=== PATIENT | female | born 1980 | race African-American/Black ===

== ENCOUNTER 2022-02-11 10:42 | Inpatient (IN) | payer OTHER ==
[2022-02-11 11:25] VITALS: BMI 28.3
[2022-02-11] MEDS ORDERED: MAG HYDROX/AL HYDROX/SIMETH 30 ML UNIT-DOSE CUP PO PRN (11:54)
[2022-02-11] MEDS ORDERED: NALOXONE HCL (KLOXXADO) 8 MG SPRAY NS PRN (11:54)
[2022-02-11] MEDS ORDERED: guaiFENesin 200 MG/10 ML 10 ML UNIT-DOSE CUPS PO PRN (11:54)
[2022-02-11] MEDS ORDERED: ONDANSETRON *ODT* 4 MG TABLET SL PRN (11:54)
[2022-02-11] MEDS ORDERED: LOPERAMIDE HCL 2 MG CAPSULE PO PRN (11:54)
[2022-02-11] MEDS ORDERED: P-EPHED 60MG/TRIPROLIDI 2.5MG TABLET PO PRN (11:54)
[2022-02-11] MEDS ORDERED: BENZOCAINE/MENTHOL (CHLORASEPTIC ) LOZENGE MM PRN (11:54)
[2022-02-11] MEDS ORDERED: NALOXONE HCL 0.4 MG/ML VIAL IM PRN (11:54)
[2022-02-11] MEDS ORDERED: ACETAMINOPHEN 325 MG TABLET (FP) PO PRN ×2 (11:54)
[2022-02-11] MEDS ORDERED: BISMUTH SUBSALICYLATE 524 MG/30 ML PO PRN (11:54)
[2022-02-11] MEDS ORDERED: MAGNESIUM CITRATE 300 ML BOTTLE PO PRN (11:54)
[2022-02-11] MEDS ORDERED: MAGNESIUM HYDROX 2400MG/30ML ORAL SUSPENSION 30 ML CUP PO PRN (11:54)
[2022-02-11] MEDS ORDERED: DICYCLOMINE HCL 10 MG CAPSULE PO PRN (11:54)
[2022-02-11] MEDS ORDERED: IBUPROFEN 600 MG TABLET (FP) PO PRN (11:54)
[2022-02-11] MEDS ORDERED: IBUPROFEN 400 MG TABLET (FP) PO PRN (11:54)
[2022-02-11] MEDS ORDERED: NICOTINE 10 MG CARTRIDGE (INHALER) IH PRN (11:54)
[2022-02-11] MEDS ORDERED: chlordiazePOXIDE HCL 25 MG CAPSULE PO PRN (11:56)
[2022-02-11] MEDS ORDERED: hydrOXYzine PAMOATE 25 MG CAPSULE (FP) PO ONE (12:24)
[2022-02-11] MEDS ORDERED: IBUPROFEN 600 MG TABLET (FP) PO ONE (12:24)
[2022-02-11] MEDS: hydrOXYzine PAMOATE 25 MG CAPSULE (FP) PO PRN (12:34)
[2022-02-11] MEDS: METHOCARBAMOL 500 MG TABLET PO PRN (13:26)
[2022-02-11] MEDS: FOLIC ACID 1 MG TABLET (FP) PO SCH (14:17)
[2022-02-11] MEDS: LISINOPRIL 5 MG TABLET PO SCH (14:17)
[2022-02-11] MEDS: ASPIRIN 81 MG CHEWABLE TABLETS PO SCH (14:17)
[2022-02-11] MEDS: valACYclovir HCL 500 MG TABLET (FP) PO SCH (14:17)
[2022-02-11] MEDS: FUROSEMIDE 20 MG TABLET (FP) PO SCH (15:59)
[2022-02-11] MEDS: CHOLECALCIFEROL (VIT D3) 1,000 UNIT (25 MCG) TABLET PO SCH (15:59)
[2022-02-11 16:57] LABS: HEMATOCRIT 36.9 % (32.4-45.2); HEMOGLOBIN 12.1 GM/dL (10.7-15.3); MCH 30.3 pg (25.7-33.7); MCHC 32.7 g/dl (32.0-36.0); MEAN CELL VOLUME 92.5 fl (80-96); MEAN PLT VOLUME 7.6 fl (7.5-11.1); PLATELET COUNT 471 10^3/uL (134-434); RBC 3.99 M/mm3 (3.60-5.2); RDW 14.7 % (11.6-15.6); WHITE BLOOD COUNT 8.4 K/mm3 (4.0-10.0)
[2022-02-11 17:15] LABS: BLOOD UREA NITROGEN 11.1 mg/dL (7-18); CALCIUM 9.4 mg/dL (8.5-10.1)
[2022-02-11 17:16] LABS: ALBUMIN 3.7 g/dl (3.4-5.0)
[2022-02-11] MEDS: chlordiazePOXIDE HCL 25 MG CAPSULE PO SCH ×2 (17:18→22:03)
[2022-02-11 17:19] LABS: CREATININE 0.6 mg/dL (0.55-1.3)
[2022-02-11 17:20] LABS: BILIRUBIN,TOTAL 0.2 mg/dL (0.2-1); TOT PROT 7.2 g/dl (6.4-8.2)
[2022-02-11] MEDS: INSULIN SLIDING SCALE (NOVOLOG) 1 VIAL SQ SCH ×2 (19:48→22:11)
[2022-02-11] MEDS: ATORVASTATIN CA 40 MG TABLET (FP) PO SCH (22:02)
[2022-02-11] MEDS: THIAMINE HCL 100 MG TABLET (FP) PO SCH (22:02)
[2022-02-11] MEDS: MELATONIN 5 MG TABLETS PO PRN (22:12)
[2022-02-12] MEDS: CARVEDILOL 3.125 MG TABLET (FP) PO SCH ×4 (00:24→22:02)
[2022-02-12] MEDS: METHOCARBAMOL 500 MG TABLET PO PRN ×2 (00:27→18:11)
[2022-02-12] MEDS: chlordiazePOXIDE HCL 25 MG CAPSULE PO SCH ×4 (06:46→22:01)
[2022-02-12] MEDS: hydrOXYzine PAMOATE 25 MG CAPSULE (FP) PO PRN ×3 (06:46→22:41)
[2022-02-12] MEDS: INSULIN SLIDING SCALE (NOVOLOG) 1 VIAL SQ SCH ×4 (06:49→22:05)
[2022-02-12] MEDS: PRENATAL VITAMINS W/ FOLIC ACID TABLET (FP) PO SCH (10:29)
[2022-02-12] MEDS: FUROSEMIDE 20 MG TABLET (FP) PO SCH (10:29)
[2022-02-12] MEDS: ASPIRIN 81 MG CHEWABLE TABLETS PO SCH (10:30)
[2022-02-12] MEDS: FOLIC ACID 1 MG TABLET (FP) PO SCH (10:31)
[2022-02-12] MEDS: valACYclovir HCL 500 MG TABLET (FP) PO SCH (10:31)
[2022-02-12] MEDS: CHOLECALCIFEROL (VIT D3) 1,000 UNIT (25 MCG) TABLET PO SCH (10:32)
[2022-02-12] MEDS: LISINOPRIL 5 MG TABLET PO SCH (10:33)
[2022-02-12] MEDS: THIAMINE HCL 100 MG TABLET (FP) PO SCH (22:00)
[2022-02-12] MEDS: ATORVASTATIN CA 40 MG TABLET (FP) PO SCH (22:00)
[2022-02-12] MEDS: MELATONIN 5 MG TABLETS PO PRN (22:02)
[2022-02-13] MEDS: chlordiazePOXIDE HCL 25 MG CAPSULE PO SCH ×4 (06:11→22:49)
[2022-02-13] MEDS: METHOCARBAMOL 500 MG TABLET PO PRN ×2 (06:12→22:47)
[2022-02-13] MEDS: INSULIN SLIDING SCALE (NOVOLOG) 1 VIAL SQ SCH ×4 (06:18→22:49)
[2022-02-13] MEDS: valACYclovir HCL 500 MG TABLET (FP) PO SCH (09:48)
[2022-02-13] MEDS: LISINOPRIL 5 MG TABLET PO SCH (09:48)
[2022-02-13] MEDS: PRENATAL VITAMINS W/ FOLIC ACID TABLET (FP) PO SCH (09:48)
[2022-02-13] MEDS: CHOLECALCIFEROL (VIT D3) 1,000 UNIT (25 MCG) TABLET PO SCH (09:49)
[2022-02-13] MEDS: FUROSEMIDE 20 MG TABLET (FP) PO SCH (09:49)
[2022-02-13] MEDS: FOLIC ACID 1 MG TABLET (FP) PO SCH (09:49)
[2022-02-13] MEDS: ASPIRIN 81 MG CHEWABLE TABLETS PO SCH (09:49)
[2022-02-13] MEDS: CARVEDILOL 3.125 MG TABLET (FP) PO SCH ×2 (09:54→22:45)
[2022-02-13] MEDS: hydrOXYzine PAMOATE 25 MG CAPSULE (FP) PO PRN ×3 (12:42→22:47)
[2022-02-13] MEDS: THIAMINE HCL 100 MG TABLET (FP) PO SCH (22:44)
[2022-02-13] MEDS: ATORVASTATIN CA 40 MG TABLET (FP) PO SCH (22:45)
[2022-02-13] MEDS: MELATONIN 5 MG TABLETS PO PRN (22:46)
[2022-02-14] MEDS ORDERED: chlordiazePOXIDE HCL 10 MG CAPSULE PO PRN
[2022-02-14] MEDS: chlordiazePOXIDE HCL 10 MG CAPSULE PO SCH ×2 (07:17→10:11)
[2022-02-14] MEDS: hydrOXYzine PAMOATE 25 MG CAPSULE (FP) PO PRN (07:20)
[2022-02-14] MEDS: INSULIN SLIDING SCALE (NOVOLOG) 1 VIAL SQ SCH ×2 (07:50→11:05)
[2022-02-14] MEDS: PRENATAL VITAMINS W/ FOLIC ACID TABLET (FP) PO SCH (10:02)
[2022-02-14] MEDS: LISINOPRIL 5 MG TABLET PO SCH (10:03)
[2022-02-14] MEDS: FOLIC ACID 1 MG TABLET (FP) PO SCH (10:03)
[2022-02-14] MEDS: CARVEDILOL 3.125 MG TABLET (FP) PO SCH (10:04)
[2022-02-14] MEDS: ASPIRIN 81 MG CHEWABLE TABLETS PO SCH (10:04)
[2022-02-14] MEDS: FUROSEMIDE 20 MG TABLET (FP) PO SCH (10:04)
[2022-02-14] MEDS: valACYclovir HCL 500 MG TABLET (FP) PO SCH (10:04)
[2022-02-14] MEDS: CHOLECALCIFEROL (VIT D3) 1,000 UNIT (25 MCG) TABLET PO SCH (10:05)
[2022-02-14 13:47] VITALS: BP 119/71; PULSE 91; RESP 16; TEMP 98.2
[2022-02-15] MEDS ORDERED: chlordiazePOXIDE HCL 10 MG CAPSULE PO SCH (05:00)
[2022-02-16] MEDS ORDERED: chlordiazePOXIDE HCL 10 MG CAPSULE PO ONE (05:00)
== END 2022-02-14 15:46 | disposition left against medical advice (07) | DRG 770 ==
LOC: YASAS 10:42 → Y3N 12:17
PROVIDERS: ADMIT Allergy & Immunology; ATTEND Allergy & Immunology
PROC: HZ2ZZZZ Detoxification Services for Substance Abuse Treatment (ICD-10-PCS; principal; 2022-02-11)
DX: F10.230 Alcohol dependence with withdrawal, uncomplicated (principal); F14.20 Cocaine dependence, uncomplicated; F17.210 Nicotine dependence, cigarettes, uncomplicated; I10 Essential (primary) hypertension; E78.5 Hyperlipidemia, unspecified; E11.9 Type 2 diabetes mellitus without complications; Z79.84 Long term (current) use of oral hypoglycemic drugs; R26.89 Other abnormalities of gait and mobility
CPT/HCPCS: 36415; 80053; 81025; 82962; 85027; 86780; 93005; 93010; C9803-CS; U0003; U0005

== ENCOUNTER 2022-06-22 16:21 | Inpatient (IN) | payer OTHER ==
[2022-06-22 18:20] VITALS: BMI 27.6
[2022-06-22] MEDS ORDERED: MAGNESIUM HYDROX 2400MG/30ML ORAL SUSPENSION 30 ML CUP PO PRN (19:15)
[2022-06-22] MEDS ORDERED: BISMUTH SUBSALICYLATE 524 MG/30 ML PO PRN (19:15)
[2022-06-22] MEDS ORDERED: ACETAMINOPHEN 325 MG TABLET (FP) PO PRN ×2 (19:15)
[2022-06-22] MEDS ORDERED: MAG HYDROX/AL HYDROX/SIMETH 30 ML UNIT-DOSE CUP PO PRN (19:15)
[2022-06-22] MEDS ORDERED: NICOTINE 10 MG CARTRIDGE (INHALER) IH PRN (19:15)
[2022-06-22] MEDS ORDERED: METHOCARBAMOL 500 MG TABLET PO PRN (19:15)
[2022-06-22] MEDS ORDERED: POLYETHYLENE GLYCOL (HEALTHYLAX) 3350 17 GM PACKET PO PRN (19:15)
[2022-06-22] MEDS ORDERED: NALOXONE HCL (KLOXXADO) 8 MG SPRAY NS PRN (19:15)
[2022-06-22] MEDS ORDERED: LOPERAMIDE HCL 2 MG CAPSULE PO PRN (19:15)
[2022-06-22] MEDS ORDERED: ONDANSETRON *ODT* 4 MG TABLET SL PRN (19:15)
[2022-06-22] MEDS ORDERED: IBUPROFEN 400 MG TABLET (FP) PO PRN (19:15)
[2022-06-22] MEDS ORDERED: BENZOCAINE/MENTHOL (CHLORASEPTIC ) LOZENGE MM PRN (19:15)
[2022-06-22] MEDS ORDERED: hydrOXYzine PAMOATE 25 MG CAPSULE (FP) PO PRN (19:15)
[2022-06-22] MEDS ORDERED: DICYCLOMINE HCL 10 MG CAPSULE PO PRN (19:15)
[2022-06-22] MEDS ORDERED: IBUPROFEN 600 MG TABLET (FP) PO PRN (19:15)
[2022-06-22] MEDS ORDERED: MELATONIN 5 MG TABLETS PO SCH (22:00)
[2022-06-22] MEDS ORDERED: THIAMINE HCL 100 MG TABLET (FP) PO SCH (22:00)
[2022-06-22] MEDS ORDERED: ATORVASTATIN CA 40 MG TABLET (FP) PO SCH (22:00)
[2022-06-22] MEDS: ASPIRIN 81 MG CHEWABLE TABLETS PO SCH (22:22)
[2022-06-22] MEDS: CARVEDILOL 3.125 MG TABLET (FP) PO SCH (22:22)
[2022-06-22] MEDS: prednisoLONE ACETATE 1% OPHTH SUSP 5 ML BOTTLE OS SCH (22:59)
[2022-06-23] MEDS ORDERED: PRENATAL VITAMINS W/ FOLIC ACID TABLET (FP) PO SCH (10:00)
[2022-06-23] MEDS: ASPIRIN 81 MG CHEWABLE TABLETS PO SCH (10:00)
[2022-06-23] MEDS ORDERED: valACYclovir HCL 500 MG TABLET (FP) PO SCH (10:00)
[2022-06-23] MEDS ORDERED: FOLIC ACID 1 MG TABLET (FP) PO SCH (10:00)
[2022-06-23] MEDS ORDERED: LISINOPRIL 5 MG TABLET PO SCH (10:00)
[2022-06-23] MEDS ORDERED: CHOLECALCIFEROL (VIT D3) 1,000 UNIT (25 MCG) TABLET PO SCH (10:00)
[2022-06-23] MEDS: CARVEDILOL 3.125 MG TABLET (FP) PO SCH (10:00)
[2022-06-23] MEDS: prednisoLONE ACETATE 1% OPHTH SUSP 5 ML BOTTLE OS SCH ×3 (10:01→17:02)
[2022-06-23] MEDS ORDERED: ALBUTEROL SO4 HFA INHALER IH ONE (10:32)
[2022-06-23 11:35] LABS: HEMATOCRIT 35.7 % (32.4-45.2); HEMOGLOBIN 11.9 GM/dL (10.7-15.3); MCH 30.4 pg (25.7-33.7); MCHC 33.2 g/dl (32.0-36.0); MEAN CELL VOLUME 91.6 fl (80-96); MEAN PLT VOLUME 7.6 fl (7.5-11.1); PLATELET COUNT 378 10^3/uL (134-434); WHITE BLOOD COUNT 5.9 K/mm3 (4.0-10.0)
[2022-06-23 11:44] LABS: ALBUMIN 3.5 g/dl (3.4-5.0); BLOOD UREA NITROGEN 14.5 mg/dL (7-18)
[2022-06-23 11:46] LABS: CREATININE 0.6 mg/dL (0.55-1.3)
[2022-06-23 11:48] LABS: BILIRUBIN,TOTAL 0.5 mg/dL (0.2-1); CALCIUM 9.8 mg/dL (8.5-10.1); TOT PROT 6.7 g/dl (6.4-8.2)
[2022-06-23 17:38] VITALS: BP 109/53; PULSE 71; RESP 18; TEMP 97.1
[2022-06-23] MEDS ORDERED: traZODone HCL 100 MG TABLET (FP) PO SCH (22:00)
== END 2022-06-23 17:55 | disposition other institution (70) | DRG 774 ==
LOC: YASAS 16:21 → Y3N 19:27
PROVIDERS: ADMIT Allergy & Immunology; ATTEND Surgery
PROC: HZ2ZZZZ Detoxification Services for Substance Abuse Treatment (ICD-10-PCS; principal; 2022-06-22)
DX: F10.230 Alcohol dependence with withdrawal, uncomplicated (principal); F14.20 Cocaine dependence, uncomplicated; F17.210 Nicotine dependence, cigarettes, uncomplicated; F32.A Depression, unspecified; G47.00 Insomnia, unspecified; E78.2 Mixed hyperlipidemia; I10 Essential (primary) hypertension; H54.8 Legal blindness, as defined in USA; E11.9 Type 2 diabetes mellitus without complications; Z79.84 Long term (current) use of oral hypoglycemic drugs; Z86.19 Personal history of other infectious and parasitic diseases
CPT/HCPCS: 36415; 80053; 82962; 85027; 86780; 87811; C9803-CS; U0003; U0005

== ENCOUNTER 2022-06-23 17:59 | Inpatient (IN) | payer OTHER ==
[2022-06-23] MEDS ORDERED: ACETAMINOPHEN 325 MG TABLET (FP) PO PRN (18:11)
[2022-06-23] MEDS ORDERED: LOPERAMIDE HCL 2 MG CAPSULE PO PRN (18:11)
[2022-06-23] MEDS ORDERED: NICOTINE 10 MG CARTRIDGE (INHALER) IH PRN (18:11)
[2022-06-23] MEDS ORDERED: MAG HYDROX/AL HYDROX/SIMETH 30 ML UNIT-DOSE CUP PO PRN (18:11)
[2022-06-23] MEDS ORDERED: P-EPHED 60MG/TRIPROLIDI 2.5MG TABLET PO PRN (18:11)
[2022-06-23] MEDS ORDERED: POLYETHYLENE GLYCOL (HEALTHYLAX) 3350 17 GM PACKET PO PRN (18:11)
[2022-06-23] MEDS ORDERED: MAGNESIUM HYDROX 2400MG/30ML ORAL SUSPENSION 30 ML CUP PO PRN (18:11)
[2022-06-23] MEDS ORDERED: IBUPROFEN 400 MG TABLET (FP) PO PRN (18:11)
[2022-06-23] MEDS ORDERED: BENZOCAINE/MENTHOL (CHLORASEPTIC ) LOZENGE MM PRN (18:11)
[2022-06-23] MEDS ORDERED: guaiFENesin 200 MG/10 ML 10 ML UNIT-DOSE CUPS PO PRN (18:11)
[2022-06-23] MEDS: MELATONIN 5 MG TABLETS PO SCH (22:19)
[2022-06-23] MEDS: THIAMINE HCL 100 MG TABLET (FP) PO SCH (22:19)
[2022-06-24] MEDS: hydrOXYzine PAMOATE 25 MG CAPSULE (FP) PO PRN ×2 (04:07→10:42)
[2022-06-24] MEDS: PRENATAL VITAMINS W/ FOLIC ACID TABLET (FP) PO SCH (10:40)
[2022-06-24] MEDS: NICOTINE 7 MG/24 HOURS TOPICAL PATCH TD SCH (10:40)
[2022-06-24] MEDS: valACYclovir HCL 500 MG TABLET (FP) PO SCH (14:24)
[2022-06-24] MEDS: ASPIRIN 81 MG CHEWABLE TABLETS PO SCH (14:24)
[2022-06-24] MEDS: LISINOPRIL 5 MG TABLET PO SCH (14:24)
[2022-06-24] MEDS: prednisoLONE ACETATE 1% OPHTH SUSP 5 ML BOTTLE OS SCH ×3 (14:25→22:05)
[2022-06-24] MEDS: CHOLECALCIFEROL (VIT D3) 1,000 UNIT (25 MCG) TABLET PO SCH (14:28)
[2022-06-24] MEDS: CARVEDILOL 3.125 MG TABLET (FP) PO SCH ×3 (14:28→23:47)
[2022-06-24] MEDS ORDERED: ATORVASTATIN CA 40 MG TABLET (FP) PO SCH (22:00)
[2022-06-24] MEDS: MELATONIN 5 MG TABLETS PO SCH (22:02)
[2022-06-24] MEDS: THIAMINE HCL 100 MG TABLET (FP) PO SCH (22:03)
[2022-06-25 07:33] VITALS: RESP 16; TEMP 97.2
[2022-06-25 10:07] VITALS: BP 115/63; PULSE 66
[2022-06-25] MEDS: PRENATAL VITAMINS W/ FOLIC ACID TABLET (FP) PO SCH (10:13)
[2022-06-25] MEDS: NICOTINE 7 MG/24 HOURS TOPICAL PATCH TD SCH (10:13)
[2022-06-25] MEDS: valACYclovir HCL 500 MG TABLET (FP) PO SCH (10:14)
[2022-06-25] MEDS: LISINOPRIL 5 MG TABLET PO SCH (10:14)
[2022-06-25] MEDS: ASPIRIN 81 MG CHEWABLE TABLETS PO SCH (10:14)
[2022-06-25] MEDS: CHOLECALCIFEROL (VIT D3) 1,000 UNIT (25 MCG) TABLET PO SCH (10:15)
[2022-06-25] MEDS: CARVEDILOL 3.125 MG TABLET (FP) PO SCH (10:15)
[2022-06-25] MEDS: prednisoLONE ACETATE 1% OPHTH SUSP 5 ML BOTTLE OS SCH ×3 (10:16→17:18)
== END 2022-06-25 17:30 | disposition home or self-care (01) | DRG 772 ==
LOC: YASAS 17:59 → Y5N 18:00
PROVIDERS: ADMIT Allergy & Immunology; ATTEND Allergy & Immunology
PROC: HZ42ZZZ Group Counseling for Substance Abuse Treatment, Cognitive-Behavioral (ICD-10-PCS; principal; 2022-06-23)
DX: F10.20 Alcohol dependence, uncomplicated (principal); F14.20 Cocaine dependence, uncomplicated; F17.210 Nicotine dependence, cigarettes, uncomplicated; F32.A Depression, unspecified; I10 Essential (primary) hypertension; E78.5 Hyperlipidemia, unspecified; H54.8 Legal blindness, as defined in USA; E11.59 Type 2 diabetes mellitus with other circulatory complications; Z79.84 Long term (current) use of oral hypoglycemic drugs; Z86.19 Personal history of other infectious and parasitic diseases; Z86.79 Personal history of other diseases of the circulatory system; Z99.3 Dependence on wheelchair
CPT/HCPCS: 82962

== ENCOUNTER 2022-09-15 14:41 | Inpatient (IN) | payer OTHER ==
[2022-09-15 16:34] VITALS: BMI 25.1
[2022-09-15] MEDS ORDERED: guaiFENesin 600 MG TABLET.ER (FP) PO PRN (21:21)
[2022-09-15] MEDS ORDERED: P-EPHED 60MG/TRIPROLIDI 2.5MG TABLET PO PRN (21:21)
[2022-09-15] MEDS ORDERED: ACETAMINOPHEN 325 MG TABLET (FP) PO PRN (21:21)
[2022-09-15] MEDS ORDERED: POLYETHYLENE GLYCOL (HEALTHYLAX) 3350 17 GM PACKET PO PRN (21:21)
[2022-09-15] MEDS ORDERED: BENZOCAINE/MENTHOL (CHLORASEPTIC ) LOZENGE MM PRN (21:21)
[2022-09-15] MEDS ORDERED: DICYCLOMINE HCL 10 MG CAPSULE PO PRN (21:21)
[2022-09-15] MEDS ORDERED: LOPERAMIDE HCL 2 MG CAPSULE PO PRN (21:21)
[2022-09-15] MEDS ORDERED: BISMUTH SUBSALICYLATE 524 MG/30 ML PO PRN (21:21)
[2022-09-15] MEDS ORDERED: BENZONATATE 200 MG CAPSULE PO PRN (21:21)
[2022-09-15] MEDS ORDERED: MAGNESIUM HYDROX 2400MG/30ML ORAL SUSPENSION 30 ML CUP PO PRN (21:21)
[2022-09-15] MEDS ORDERED: IBUPROFEN 600 MG TABLET (FP) PO PRN (21:21)
[2022-09-15] MEDS ORDERED: NALOXONE HCL (KLOXXADO) 8 MG SPRAY NS PRN (21:21)
[2022-09-15] MEDS ORDERED: NICOTINE POLACRILEX 2 MG GUM BUC PRN (21:21)
[2022-09-15] MEDS ORDERED: NALOXONE HCL 0.4 MG/ML VIAL IM PRN (21:21)
[2022-09-15] MEDS ORDERED: MAG HYDROX/AL HYDROX/SIMETH 30 ML UNIT-DOSE CUP PO PRN (21:21)
[2022-09-15] MEDS ORDERED: IBUPROFEN 400 MG TABLET (FP) PO PRN (21:21)
[2022-09-15] MEDS ORDERED: METHOCARBAMOL 500 MG TABLET PO PRN (21:21)
[2022-09-15] MEDS ORDERED: ONDANSETRON *ODT* 4 MG TABLET SL PRN (21:21)
[2022-09-15] MEDS ORDERED: MELATONIN 5 MG TABLETS PO PRN (21:23)
[2022-09-15] MEDS ORDERED: guaiFENesin/D-METHORPHAN HB 10 ML UNIT-DOSE CUPS PO PRN (21:24)
[2022-09-15] MEDS ORDERED: MELATONIN 5 MG TABLETS PO SCH (22:00)
[2022-09-16] MEDS: prednisoLONE ACETATE 1% OPHTH SUSP 5 ML BOTTLE OS SCH ×5 (00:35→22:40)
[2022-09-16] MEDS: CARVEDILOL 3.125 MG TABLET (FP) PO SCH ×2 (01:16→11:23)
[2022-09-16] MEDS: THIAMINE HCL 100 MG TABLET (FP) PO SCH ×2 (01:19→22:23)
[2022-09-16] MEDS ORDERED: CHOLECALCIFEROL (VIT D3) 1,000 UNIT (25 MCG) TABLET PO SCH ×2 (10:00)
[2022-09-16] MEDS: PRENATAL VITAMINS W/ FOLIC ACID TABLET (FP) PO SCH (10:31)
[2022-09-16] MEDS: CARVEDILOL 3.125 MG PO SCH ×2 (10:32→22:23)
[2022-09-16] MEDS: LISINOPRIL 5 MG TABLET PO SCH (10:32)
[2022-09-16] MEDS: ASPIRIN 81 MG CHEWABLE TABLETS PO SCH (10:32)
[2022-09-16] MEDS: NON FORMULARY PO SCH (10:32)
[2022-09-16] MEDS: valACYclovir HCL 500 MG TABLET (FP) PO SCH (10:34)
[2022-09-16] MEDS: FOLIC ACID 1 MG TABLET (FP) PO SCH (10:51)
[2022-09-16 11:04] LABS: HEMATOCRIT 37.9 % (32.4-45.2); HEMOGLOBIN 12.8 GM/dL (10.7-15.3); MCH 30.7 pg (25.7-33.7); MCHC 33.7 g/dl (32.0-36.0); MEAN CELL VOLUME 91.1 fl (80-96); MEAN PLT VOLUME 7.7 fl (7.5-11.1); PLATELET COUNT 582 10^3/uL (134-434); RBC 4.16 M/mm3 (3.60-5.2); RDW 14.7 % (11.6-15.6); WHITE BLOOD COUNT 7.8 K/mm3 (4.0-10.0)
[2022-09-16 11:11] LABS: POTASSIUM 3.8 mmol/L (3.5-5.1)
[2022-09-16 11:22] LABS: BLOOD UREA NITROGEN 16.2 mg/dL (7-18); CALCIUM 9.8 mg/dL (8.5-10.1)
[2022-09-16 11:23] LABS: ALBUMIN 3.7 g/dl (3.4-5.0)
[2022-09-16] MEDS ORDERED: hydrOXYzine PAMOATE 25 MG CAPSULE (FP) PO PRN (11:24)
[2022-09-16 11:25] LABS: CREATININE 0.7 mg/dL (0.55-1.3)
[2022-09-16 11:26] LABS: BILIRUBIN,TOTAL 0.3 mg/dL (0.2-1); TOT PROT 7.5 g/dl (6.4-8.2)
[2022-09-16 13:26] VITALS: RESP 16
[2022-09-16] MEDS ORDERED: metFORMIN HCL 500 MG TABLET (FP) PO SCH (16:30)
[2022-09-16] MEDS ORDERED: NON FORMULARY PO SCH (16:30)
[2022-09-16] MEDS ORDERED: traZODone HCL 100 MG TABLET (FP) PO SCH (22:00)
[2022-09-17] MEDS: NON FORMULARY PO SCH ×3 (06:06→09:43)
[2022-09-17] MEDS: FOLIC ACID 1 MG TABLET (FP) PO SCH (09:42)
[2022-09-17] MEDS: ASPIRIN 81 MG CHEWABLE TABLETS PO SCH (09:42)
[2022-09-17] MEDS: valACYclovir HCL 500 MG TABLET (FP) PO SCH (09:42)
[2022-09-17] MEDS: LISINOPRIL 5 MG TABLET PO SCH (09:43)
[2022-09-17] MEDS: CARVEDILOL 3.125 MG PO SCH (09:43)
[2022-09-17 09:44] VITALS: BP 132/81; PULSE 75; TEMP 98.1
[2022-09-17] MEDS: prednisoLONE ACETATE 1% OPHTH SUSP 5 ML BOTTLE OS SCH (09:46)
[2022-09-17] MEDS: PRENATAL VITAMINS W/ FOLIC ACID TABLET (FP) PO SCH (10:21)
== END 2022-09-17 09:45 | disposition home or self-care (01) | DRG 774 ==
LOC: YASAS 14:41 → Y6N 23:57
PROVIDERS: ADMIT Allergy & Immunology; ATTEND Surgery
PROC: HZ2ZZZZ Detoxification Services for Substance Abuse Treatment (ICD-10-PCS; principal; 2022-09-15)
DX: F10.230 Alcohol dependence with withdrawal, uncomplicated (principal); F14.20 Cocaine dependence, uncomplicated; F17.210 Nicotine dependence, cigarettes, uncomplicated; F19.282 Other psychoactive substance dependence with psychoactive substance-induced sleep disorder; F32.A Depression, unspecified; H54.7 Unspecified visual loss; E11.9 Type 2 diabetes mellitus without complications; Z79.84 Long term (current) use of oral hypoglycemic drugs; Z86.79 Personal history of other diseases of the circulatory system
CPT/HCPCS: 36415; 80053; 81025; 82962; 85027; 86780; C9803-CS; U0003; U0005

== ENCOUNTER 2023-02-23 18:13 | Inpatient (IN) | payer OTHER ==
[2023-02-23 18:55] VITALS: BMI 26.2
[2023-02-23] MEDS ORDERED: guaiFENesin 600 MG TABLET.ER (FP) PO PRN (20:14)
[2023-02-23] MEDS ORDERED: BENZONATATE 200 MG CAPSULE PO PRN (20:14)
[2023-02-23] MEDS ORDERED: NALOXONE HCL 0.4 MG/ML VIAL IM PRN (20:14)
[2023-02-23] MEDS ORDERED: BENZOCAINE/MENTHOL (CHLORASEPTIC ) LOZENGE MM PRN (20:14)
[2023-02-23] MEDS ORDERED: POLYETHYLENE GLYCOL (HEALTHYLAX) 3350 17 GM PACKET PO PRN (20:14)
[2023-02-23] MEDS ORDERED: IBUPROFEN 400 MG TABLET (FP) PO PRN (20:14)
[2023-02-23] MEDS ORDERED: NALOXONE HCL (KLOXXADO) 8 MG SPRAY NS PRN (20:14)
[2023-02-23] MEDS: MELATONIN 5 MG TABLETS PO SCH (22:49)
[2023-02-23] MEDS: SULFAMETHOXAZOLE/TRIMETHOPRIM 800MG/160MG D.S. TABLET PO SCH (22:49)
[2023-02-23] MEDS: THIAMINE HCL 100 MG TABLET (FP) PO SCH (22:49)
[2023-02-24] MEDS ORDERED: PATIENT'S OWN MEDICATION (NON-FORMULARY) (Lisinopril [Zestril] 2.5 MG Tablet) PO SCH (10:00)
[2023-02-24] MEDS: SULFAMETHOXAZOLE/TRIMETHOPRIM 800MG/160MG D.S. TABLET PO SCH ×2 (10:45→21:46)
[2023-02-24] MEDS: ASPIRIN 81 MG CHEWABLE TABLETS PO SCH (10:45)
[2023-02-24] MEDS: CARVEDILOL 3.125 MG TABLET (FP) PO SCH ×2 (10:46→21:47)
[2023-02-24] MEDS: PRENATAL VITAMINS W/ FOLIC ACID TABLET (FP) PO SCH (10:46)
[2023-02-24] MEDS: LISINOPRIL 5 MG TABLET PO SCH (10:46)
[2023-02-24] MEDS: NICOTINE 21 MG/24 HOURS TOPICAL PATCH TD SCH (10:48)
[2023-02-24] MEDS: NICOTINE POLACRILEX 2 MG GUM BUC PRN (10:49)
[2023-02-24] MEDS ORDERED: TUBERCULIN PPD 5 TU/0.1ML VIAL ID ONE (11:14)
[2023-02-24 12:00] LABS: CHLORIDE 107 mmol/L (98-107); POTASSIUM 3.8 mmol/L (3.5-5.1); SODIUM 140 mmol/L (136-145)
[2023-02-24] MEDS ORDERED: TUBERCULIN PPD 5 TU/0.1ML SYRINGE (IN PATIENT USE ONLY) ID ONE (12:00)
[2023-02-24 12:03] LABS: ALBUMIN 2.9 g/dl (3.4-5.0); ANION GAP 6 mmol/L (4-13); CALCIUM 8.9 mg/dL (8.5-10.1); CO2 28 mmol/L (21-32); GLUCOSE,RANDOM 127 mg/dL (74-106)
[2023-02-24 12:04] LABS: BLOOD UREA NITROGEN 12.5 mg/dL (7-18)
[2023-02-24 12:05] LABS: HEMATOCRIT 32.8 % (32.4-45.2); HEMOGLOBIN 11.1 GM/dL (10.7-15.3); MCH 31.1 pg (25.7-33.7); MCHC 33.8 g/dl (32.0-36.0); MEAN CELL VOLUME 92.1 fl (80-96); MEAN PLT VOLUME 7.7 fl (7.5-11.1); PLATELET COUNT 389 10^3/uL (134-434); RBC 3.56 M/mm3 (3.60-5.2); RDW 14.6 % (11.6-15.6); WHITE BLOOD COUNT 6.4 K/mm3 (4.0-10.0)
[2023-02-24 12:06] LABS: CREATININE 0.6 mg/dL (0.55-1.3)
[2023-02-24 12:07] LABS: SGOT/AST 12 U/L (15-37); SGPT/ALT 14 U/L (13-61)
[2023-02-24 12:08] LABS: BILIRUBIN,TOTAL 0.9 mg/dL (0.2-1)
[2023-02-24 12:09] LABS: ALK PHOS 82 U/L (45-117)
[2023-02-24 12:31] LABS: SYPHILIS W/ RPR CONF NON-REACTIVE (NONREACTIVE)
[2023-02-24 16:43] LABS: URINE APPEARANCE CLOUDY; URINE BILIRUBIN NEGATIVE (NEGATIVE); URINE COLOR YELLOW; URINE GLUCOSE (UA) NEGATIVE (NEGATIVE); URINE KETONE NEGATIVE (NEGATIVE); URINE LEUK ESTERASE NEGATIVE (NEGATIVE); URINE NITRITE NEGATIVE (NEGATIVE); URINE PROTEIN NEGATIVE (NEGATIVE)
[2023-02-24] MEDS: MELATONIN 5 MG TABLETS PO SCH (21:46)
[2023-02-24] MEDS: THIAMINE HCL 100 MG TABLET (FP) PO SCH (21:47)
[2023-02-24] MEDS: traZODone HCL 100 MG TABLET (FP) PO SCH (21:47)
[2023-02-25] MEDS: NICOTINE POLACRILEX 2 MG GUM BUC PRN (07:38)
[2023-02-25] MEDS: LISINOPRIL 5 MG TABLET PO SCH (09:48)
[2023-02-25] MEDS: SULFAMETHOXAZOLE/TRIMETHOPRIM 800MG/160MG D.S. TABLET PO SCH ×2 (09:48→21:45)
[2023-02-25] MEDS: ASPIRIN 81 MG CHEWABLE TABLETS PO SCH (09:48)
[2023-02-25] MEDS: PRENATAL VITAMINS W/ FOLIC ACID TABLET (FP) PO SCH (09:48)
[2023-02-25] MEDS: CARVEDILOL 3.125 MG TABLET (FP) PO SCH ×2 (09:49→21:49)
[2023-02-25] MEDS: NICOTINE 21 MG/24 HOURS TOPICAL PATCH TD SCH (09:49)
[2023-02-25] MEDS: MAGNESIUM HYDROX 2400MG/30ML ORAL SUSPENSION 30 ML CUP PO PRN (11:55)
[2023-02-25] MEDS ORDERED: metFORMIN HCL 500 MG TABLET (FP) PO SCH (13:45)
[2023-02-25] MEDS: valACYclovir HCL 500 MG TABLET (FP) PO SCH (14:49)
[2023-02-25] MEDS: metFORMIN HCL 500 MG TABLET (FP) PO SCH (17:00)
[2023-02-25] MEDS: THIAMINE HCL 100 MG TABLET (FP) PO SCH (21:45)
[2023-02-25] MEDS: traZODone HCL 100 MG TABLET (FP) PO SCH (21:45)
[2023-02-25] MEDS: MELATONIN 5 MG TABLETS PO SCH (21:47)
[2023-02-26] MEDS: ATORVASTATIN CA 40 MG TABLET (FP) PO SCH (06:56)
[2023-02-26] MEDS: metFORMIN HCL 500 MG TABLET (FP) PO SCH ×2 (06:56→17:06)
[2023-02-26] MEDS: NICOTINE POLACRILEX 2 MG GUM BUC PRN (08:49)
[2023-02-26] MEDS: CHOLECALCIFEROL (VIT D3) 1,000 UNIT (25 MCG) TABLET PO SCH (10:42)
[2023-02-26] MEDS: ASPIRIN 81 MG CHEWABLE TABLETS PO SCH (10:42)
[2023-02-26] MEDS: valACYclovir HCL 500 MG TABLET (FP) PO SCH (10:42)
[2023-02-26] MEDS: LISINOPRIL 5 MG TABLET PO SCH (10:43)
[2023-02-26] MEDS: NICOTINE 21 MG/24 HOURS TOPICAL PATCH TD SCH ×2 (10:43→11:50)
[2023-02-26] MEDS: SULFAMETHOXAZOLE/TRIMETHOPRIM 800MG/160MG D.S. TABLET PO SCH ×2 (10:43→21:55)
[2023-02-26] MEDS: CARVEDILOL 3.125 MG TABLET (FP) PO SCH ×2 (10:45→21:55)
[2023-02-26] MEDS: PRENATAL VITAMINS W/ FOLIC ACID TABLET (FP) PO SCH (10:45)
[2023-02-26] MEDS: ACETAMINOPHEN 325 MG TABLET (FP) PO PRN (10:46)
[2023-02-26] MEDS: LOPERAMIDE HCL 2 MG CAPSULE PO PRN (10:46)
[2023-02-26] MEDS: MELATONIN 5 MG TABLETS PO SCH (21:55)
[2023-02-26] MEDS: THIAMINE HCL 100 MG TABLET (FP) PO SCH (21:55)
[2023-02-26] MEDS: traZODone HCL 100 MG TABLET (FP) PO SCH (21:55)
[2023-02-27] MEDS ORDERED: ATORVASTATIN CA 20 MG TABLET (FP) ONE (03:57)
[2023-02-27] MEDS: ATORVASTATIN CA 40 MG TABLET (FP) PO SCH (07:11)
[2023-02-27] MEDS: metFORMIN HCL 500 MG TABLET (FP) PO SCH ×2 (07:11→17:17)
[2023-02-27] MEDS: NICOTINE POLACRILEX 2 MG GUM BUC PRN ×2 (07:20→19:34)
[2023-02-27] MEDS: CARVEDILOL 3.125 MG TABLET (FP) PO SCH ×2 (10:51→21:52)
[2023-02-27] MEDS: CHOLECALCIFEROL (VIT D3) 1,000 UNIT (25 MCG) TABLET PO SCH (10:51)
[2023-02-27] MEDS: valACYclovir HCL 500 MG TABLET (FP) PO SCH (10:51)
[2023-02-27] MEDS: NICOTINE 21 MG/24 HOURS TOPICAL PATCH TD SCH (10:51)
[2023-02-27] MEDS: ASPIRIN 81 MG CHEWABLE TABLETS PO SCH (10:51)
[2023-02-27] MEDS: SULFAMETHOXAZOLE/TRIMETHOPRIM 800MG/160MG D.S. TABLET PO SCH ×2 (10:51→21:53)
[2023-02-27] MEDS: PRENATAL VITAMINS W/ FOLIC ACID TABLET (FP) PO SCH (10:52)
[2023-02-27] MEDS: LISINOPRIL 5 MG TABLET PO SCH (10:52)
[2023-02-27] MEDS: traZODone HCL 100 MG TABLET (FP) PO SCH (21:52)
[2023-02-27] MEDS: THIAMINE HCL 100 MG TABLET (FP) PO SCH (21:52)
[2023-02-27] MEDS: MELATONIN 5 MG TABLETS PO SCH (21:53)
[2023-02-28] MEDS: ATORVASTATIN CA 40 MG TABLET (FP) PO SCH (06:51)
[2023-02-28] MEDS: NICOTINE POLACRILEX 2 MG GUM BUC PRN ×3 (06:52→14:43)
[2023-02-28] MEDS: COLLOIDAL OATMEAL 1 BAR EACH TP PRN (06:53)
[2023-02-28] MEDS: metFORMIN HCL 500 MG TABLET (FP) PO SCH ×3 (07:59→17:05)
[2023-02-28] MEDS: valACYclovir HCL 500 MG TABLET (FP) PO SCH (09:28)
[2023-02-28] MEDS: PRENATAL VITAMINS W/ FOLIC ACID TABLET (FP) PO SCH (09:28)
[2023-02-28] MEDS: SULFAMETHOXAZOLE/TRIMETHOPRIM 800MG/160MG D.S. TABLET PO SCH ×2 (09:29→21:10)
[2023-02-28] MEDS: CHOLECALCIFEROL (VIT D3) 1,000 UNIT (25 MCG) TABLET PO SCH (09:30)
[2023-02-28] MEDS: ASPIRIN 81 MG CHEWABLE TABLETS PO SCH (09:30)
[2023-02-28] MEDS: CARVEDILOL 3.125 MG TABLET (FP) PO SCH ×2 (09:30→21:10)
[2023-02-28] MEDS: NICOTINE 21 MG/24 HOURS TOPICAL PATCH TD SCH ×2 (09:31→09:43)
[2023-02-28] MEDS: LISINOPRIL 5 MG TABLET PO SCH (09:31)
[2023-02-28] MEDS: MAGNESIUM HYDROX 2400MG/30ML ORAL SUSPENSION 30 ML CUP PO PRN (12:18)
[2023-02-28] MEDS: IBUPROFEN 600 MG TABLET (FP) PO PRN (14:44)
[2023-02-28] MEDS: ACETAMINOPHEN 325 MG TABLET (FP) PO PRN (16:59)
[2023-02-28] MEDS: traZODone HCL 100 MG TABLET (FP) PO SCH (21:10)
[2023-02-28] MEDS: MELATONIN 5 MG TABLETS PO SCH (21:10)
[2023-02-28] MEDS: THIAMINE HCL 100 MG TABLET (FP) PO SCH (21:10)
[2023-03-01] MEDS: ATORVASTATIN CA 40 MG TABLET (FP) PO SCH (06:40)
[2023-03-01] MEDS: NICOTINE POLACRILEX 2 MG GUM BUC PRN ×2 (06:41→08:58)
[2023-03-01] MEDS: metFORMIN HCL 500 MG TABLET (FP) PO SCH ×2 (07:32→16:50)
[2023-03-01] MEDS: PRENATAL VITAMINS W/ FOLIC ACID TABLET (FP) PO SCH (10:11)
[2023-03-01] MEDS: ASPIRIN 81 MG CHEWABLE TABLETS PO SCH (10:11)
[2023-03-01] MEDS: valACYclovir HCL 500 MG TABLET (FP) PO SCH (10:11)
[2023-03-01] MEDS: CHOLECALCIFEROL (VIT D3) 1,000 UNIT (25 MCG) TABLET PO SCH (10:11)
[2023-03-01] MEDS: LISINOPRIL 5 MG TABLET PO SCH (10:11)
[2023-03-01] MEDS: CARVEDILOL 3.125 MG TABLET (FP) PO SCH ×2 (10:12→21:42)
[2023-03-01] MEDS: NICOTINE 21 MG/24 HOURS TOPICAL PATCH TD SCH (10:14)
[2023-03-01] MEDS: SULFAMETHOXAZOLE/TRIMETHOPRIM 800MG/160MG D.S. TABLET PO SCH ×2 (10:14→21:42)
[2023-03-01] MEDS: INSULIN SLIDING SCALE (NOVOLOG) 1 VIAL SQ SCH (16:51)
[2023-03-01] MEDS: traZODone HCL 100 MG TABLET (FP) PO SCH (21:42)
[2023-03-01] MEDS: THIAMINE HCL 100 MG TABLET (FP) PO SCH (21:42)
[2023-03-01] MEDS: MELATONIN 5 MG TABLETS PO SCH (21:42)
[2023-03-01] MEDS: SENNOSIDES 8.6MG TABLET (FP) PO PRN (21:42)
[2023-03-02] MEDS: ATORVASTATIN CA 40 MG TABLET (FP) PO SCH (06:07)
[2023-03-02] MEDS: SENNOSIDES 8.6MG TABLET (FP) PO PRN (06:08)
[2023-03-02] MEDS: NICOTINE POLACRILEX 2 MG GUM BUC PRN ×3 (06:10→13:29)
[2023-03-02] MEDS: INSULIN SLIDING SCALE (NOVOLOG) 1 VIAL SQ SCH ×2 (07:40→17:00)
[2023-03-02] MEDS: metFORMIN HCL 500 MG TABLET (FP) PO SCH ×2 (07:40→17:00)
[2023-03-02] MEDS: PRENATAL VITAMINS W/ FOLIC ACID TABLET (FP) PO SCH (09:50)
[2023-03-02] MEDS: ASPIRIN 81 MG CHEWABLE TABLETS PO SCH (09:50)
[2023-03-02] MEDS: NICOTINE 21 MG/24 HOURS TOPICAL PATCH TD SCH (09:50)
[2023-03-02] MEDS: LISINOPRIL 5 MG TABLET PO SCH (09:50)
[2023-03-02] MEDS: CHOLECALCIFEROL (VIT D3) 1,000 UNIT (25 MCG) TABLET PO SCH (09:50)
[2023-03-02] MEDS: valACYclovir HCL 500 MG TABLET (FP) PO SCH (09:50)
[2023-03-02] MEDS: SULFAMETHOXAZOLE/TRIMETHOPRIM 800MG/160MG D.S. TABLET PO SCH ×2 (09:51→21:30)
[2023-03-02] MEDS: CARVEDILOL 3.125 MG TABLET (FP) PO SCH ×2 (09:51→21:31)
[2023-03-02] MEDS: MAG HYDROX/AL HYDROX/SIMETH 30 ML UNIT-DOSE CUP PO PRN (10:57)
[2023-03-02] MEDS: ACETAMINOPHEN 325 MG TABLET (FP) PO PRN (15:40)
[2023-03-02] MEDS: MELATONIN 5 MG TABLETS PO SCH (21:29)
[2023-03-02] MEDS: THIAMINE HCL 100 MG TABLET (FP) PO SCH (21:30)
[2023-03-02] MEDS: traZODone HCL 100 MG TABLET (FP) PO SCH (21:30)
[2023-03-03] MEDS: hydrOXYzine PAMOATE 25 MG CAPSULE (FP) PO PRN ×2 (00:56→22:30)
[2023-03-03] MEDS: NICOTINE POLACRILEX 2 MG GUM BUC PRN ×5 (00:57→19:56)
[2023-03-03] MEDS ORDERED: INSULIN (NOVOLOG) ASPART 100 UNITS/ML 10ML VIAL ONE (04:11)
[2023-03-03] MEDS: ATORVASTATIN CA 40 MG TABLET (FP) PO SCH (06:26)
[2023-03-03] MEDS: metFORMIN HCL 500 MG TABLET (FP) PO SCH ×2 (06:27→17:31)
[2023-03-03] MEDS: INSULIN SLIDING SCALE (NOVOLOG) 1 VIAL SQ SCH ×2 (07:16→17:31)
[2023-03-03] MEDS: PRENATAL VITAMINS W/ FOLIC ACID TABLET (FP) PO SCH (09:33)
[2023-03-03] MEDS: ASPIRIN 81 MG CHEWABLE TABLETS PO SCH (09:33)
[2023-03-03] MEDS: valACYclovir HCL 500 MG TABLET (FP) PO SCH (09:33)
[2023-03-03] MEDS: LISINOPRIL 5 MG TABLET PO SCH (09:33)
[2023-03-03] MEDS: CHOLECALCIFEROL (VIT D3) 1,000 UNIT (25 MCG) TABLET PO SCH (09:33)
[2023-03-03] MEDS: NICOTINE 21 MG/24 HOURS TOPICAL PATCH TD SCH (09:34)
[2023-03-03] MEDS: SULFAMETHOXAZOLE/TRIMETHOPRIM 800MG/160MG D.S. TABLET PO SCH ×2 (09:34→22:02)
[2023-03-03] MEDS: CARVEDILOL 3.125 MG TABLET (FP) PO SCH ×2 (09:34→22:03)
[2023-03-03] MEDS: MAG HYDROX/AL HYDROX/SIMETH 30 ML UNIT-DOSE CUP PO PRN (10:46)
[2023-03-03] MEDS: ACETAMINOPHEN 325 MG TABLET (FP) PO PRN (19:54)
[2023-03-03] MEDS: THIAMINE HCL 100 MG TABLET (FP) PO SCH (22:02)
[2023-03-03] MEDS: traZODone HCL 100 MG TABLET (FP) PO SCH (22:02)
[2023-03-03] MEDS: MELATONIN 5 MG TABLETS PO SCH (22:03)
[2023-03-04] MEDS: NICOTINE POLACRILEX 2 MG GUM BUC PRN ×4 (02:50→19:10)
[2023-03-04] MEDS: hydrOXYzine PAMOATE 25 MG CAPSULE (FP) PO PRN (03:46)
[2023-03-04] MEDS: metFORMIN HCL 500 MG TABLET (FP) PO SCH ×2 (06:32→16:57)
[2023-03-04] MEDS: ATORVASTATIN CA 40 MG TABLET (FP) PO SCH (06:33)
[2023-03-04] MEDS: INSULIN SLIDING SCALE (NOVOLOG) 1 VIAL SQ SCH ×2 (06:34→16:57)
[2023-03-04] MEDS: MAG HYDROX/AL HYDROX/SIMETH 30 ML UNIT-DOSE CUP PO PRN (08:42)
[2023-03-04] MEDS: CHOLECALCIFEROL (VIT D3) 1,000 UNIT (25 MCG) TABLET PO SCH (09:35)
[2023-03-04] MEDS: valACYclovir HCL 500 MG TABLET (FP) PO SCH (09:35)
[2023-03-04] MEDS: CARVEDILOL 3.125 MG TABLET (FP) PO SCH ×2 (09:35→21:41)
[2023-03-04] MEDS: LISINOPRIL 5 MG TABLET PO SCH (09:36)
[2023-03-04] MEDS: SULFAMETHOXAZOLE/TRIMETHOPRIM 800MG/160MG D.S. TABLET PO SCH ×2 (09:36→21:36)
[2023-03-04] MEDS: PRENATAL VITAMINS W/ FOLIC ACID TABLET (FP) PO SCH (09:38)
[2023-03-04] MEDS: NICOTINE 21 MG/24 HOURS TOPICAL PATCH TD SCH (09:39)
[2023-03-04] MEDS: ASPIRIN 81 MG CHEWABLE TABLETS PO SCH (09:45)
[2023-03-04] MEDS: SENNOSIDES 8.6MG TABLET (FP) PO PRN (12:25)
[2023-03-04] MEDS: LOPERAMIDE HCL 2 MG CAPSULE PO PRN (19:11)
[2023-03-04] MEDS: THIAMINE HCL 100 MG TABLET (FP) PO SCH (21:36)
[2023-03-04] MEDS: MELATONIN 5 MG TABLETS PO SCH (21:36)
[2023-03-04] MEDS: traZODone HCL 50 MG TABLET (FP) PO SCH (21:36)
[2023-03-05] MEDS: metFORMIN HCL 500 MG TABLET (FP) PO SCH ×2 (06:30→17:01)
[2023-03-05] MEDS: ATORVASTATIN CA 40 MG TABLET (FP) PO SCH (06:30)
[2023-03-05] MEDS: hydrOXYzine PAMOATE 25 MG CAPSULE (FP) PO PRN (06:31)
[2023-03-05] MEDS: NICOTINE POLACRILEX 2 MG GUM BUC PRN ×4 (06:32→20:28)
[2023-03-05] MEDS: INSULIN SLIDING SCALE (NOVOLOG) 1 VIAL SQ SCH ×2 (06:53→17:02)
[2023-03-05] MEDS: CARVEDILOL 3.125 MG TABLET (FP) PO SCH ×2 (10:22→23:05)
[2023-03-05] MEDS: PRENATAL VITAMINS W/ FOLIC ACID TABLET (FP) PO SCH (10:22)
[2023-03-05] MEDS: LISINOPRIL 5 MG TABLET PO SCH (10:22)
[2023-03-05] MEDS: SULFAMETHOXAZOLE/TRIMETHOPRIM 800MG/160MG D.S. TABLET PO SCH ×2 (10:24→21:53)
[2023-03-05] MEDS: NICOTINE 21 MG/24 HOURS TOPICAL PATCH TD SCH (10:24)
[2023-03-05] MEDS: ASPIRIN 81 MG CHEWABLE TABLETS PO SCH (10:24)
[2023-03-05] MEDS: CHOLECALCIFEROL (VIT D3) 1,000 UNIT (25 MCG) TABLET PO SCH (10:25)
[2023-03-05] MEDS: valACYclovir HCL 500 MG TABLET (FP) PO SCH (10:25)
[2023-03-05] MEDS: MELATONIN 5 MG TABLETS PO SCH (21:51)
[2023-03-05] MEDS: THIAMINE HCL 100 MG TABLET (FP) PO SCH (21:53)
[2023-03-05] MEDS: traZODone HCL 50 MG TABLET (FP) PO SCH (21:53)
[2023-03-06] MEDS: hydrOXYzine PAMOATE 25 MG CAPSULE (FP) PO PRN (04:53)
[2023-03-06] MEDS: NICOTINE POLACRILEX 2 MG GUM BUC PRN ×6 (04:55→19:18)
[2023-03-06] MEDS: metFORMIN HCL 500 MG TABLET (FP) PO SCH ×2 (06:41→16:58)
[2023-03-06] MEDS: INSULIN SLIDING SCALE (NOVOLOG) 1 VIAL SQ SCH ×2 (06:41→17:00)
[2023-03-06] MEDS: ATORVASTATIN CA 40 MG TABLET (FP) PO SCH (06:41)
[2023-03-06] MEDS: ACETAMINOPHEN 325 MG TABLET (FP) PO PRN ×2 (07:39→19:17)
[2023-03-06] MEDS: NICOTINE 21 MG/24 HOURS TOPICAL PATCH TD SCH (09:52)
[2023-03-06] MEDS: PRENATAL VITAMINS W/ FOLIC ACID TABLET (FP) PO SCH (09:52)
[2023-03-06] MEDS: CARVEDILOL 3.125 MG TABLET (FP) PO SCH ×2 (09:52→21:42)
[2023-03-06] MEDS: ASPIRIN 81 MG CHEWABLE TABLETS PO SCH (09:52)
[2023-03-06] MEDS: SULFAMETHOXAZOLE/TRIMETHOPRIM 800MG/160MG D.S. TABLET PO SCH ×2 (09:52→21:42)
[2023-03-06] MEDS: CHOLECALCIFEROL (VIT D3) 1,000 UNIT (25 MCG) TABLET PO SCH (09:53)
[2023-03-06] MEDS: LISINOPRIL 5 MG TABLET PO SCH (09:53)
[2023-03-06] MEDS: valACYclovir HCL 500 MG TABLET (FP) PO SCH (09:53)
[2023-03-06] MEDS: traZODone HCL 50 MG TABLET (FP) PO SCH (21:42)
[2023-03-06] MEDS: THIAMINE HCL 100 MG TABLET (FP) PO SCH (21:43)
[2023-03-06] MEDS: MELATONIN 5 MG TABLETS PO SCH (21:44)
[2023-03-07] MEDS: NICOTINE POLACRILEX 2 MG GUM BUC PRN ×6 (03:43→22:24)
[2023-03-07] MEDS: hydrOXYzine PAMOATE 25 MG CAPSULE (FP) PO PRN (06:40)
[2023-03-07] MEDS: metFORMIN HCL 500 MG TABLET (FP) PO SCH ×2 (06:40→16:54)
[2023-03-07] MEDS: ATORVASTATIN CA 40 MG TABLET (FP) PO SCH (06:40)
[2023-03-07] MEDS: INSULIN SLIDING SCALE (NOVOLOG) 1 VIAL SQ SCH ×2 (07:08→16:55)
[2023-03-07] MEDS: PRENATAL VITAMINS W/ FOLIC ACID TABLET (FP) PO SCH (09:52)
[2023-03-07] MEDS: ASPIRIN 81 MG CHEWABLE TABLETS PO SCH (09:52)
[2023-03-07] MEDS: LISINOPRIL 5 MG TABLET PO SCH (09:52)
[2023-03-07] MEDS: NICOTINE 21 MG/24 HOURS TOPICAL PATCH TD SCH (09:53)
[2023-03-07] MEDS: CARVEDILOL 3.125 MG TABLET (FP) PO SCH ×2 (09:53→22:23)
[2023-03-07] MEDS: SULFAMETHOXAZOLE/TRIMETHOPRIM 800MG/160MG D.S. TABLET PO SCH ×2 (09:53→22:20)
[2023-03-07] MEDS: valACYclovir HCL 500 MG TABLET (FP) PO SCH (09:54)
[2023-03-07] MEDS: CHOLECALCIFEROL (VIT D3) 1,000 UNIT (25 MCG) TABLET PO SCH (09:54)
[2023-03-07] MEDS: ACETAMINOPHEN 325 MG TABLET (FP) PO PRN (09:56)
[2023-03-07] MEDS: IBUPROFEN 600 MG TABLET (FP) PO PRN (15:52)
[2023-03-07] MEDS: traZODone HCL 50 MG TABLET (FP) PO SCH (22:20)
[2023-03-07] MEDS: THIAMINE HCL 100 MG TABLET (FP) PO SCH (22:22)
[2023-03-07] MEDS: MELATONIN 5 MG TABLETS PO SCH (22:23)
[2023-03-08] MEDS: hydrOXYzine PAMOATE 25 MG CAPSULE (FP) PO PRN (03:16)
[2023-03-08] MEDS: NICOTINE POLACRILEX 2 MG GUM BUC PRN ×5 (03:16→20:36)
[2023-03-08] MEDS: ATORVASTATIN CA 40 MG TABLET (FP) PO SCH (07:02)
[2023-03-08] MEDS: INSULIN SLIDING SCALE (NOVOLOG) 1 VIAL SQ SCH ×2 (07:02→16:44)
[2023-03-08] MEDS: metFORMIN HCL 500 MG TABLET (FP) PO SCH ×2 (07:02→16:44)
[2023-03-08] MEDS: SULFAMETHOXAZOLE/TRIMETHOPRIM 800MG/160MG D.S. TABLET PO SCH ×2 (09:46→21:54)
[2023-03-08] MEDS: valACYclovir HCL 500 MG TABLET (FP) PO SCH (09:46)
[2023-03-08] MEDS: CHOLECALCIFEROL (VIT D3) 1,000 UNIT (25 MCG) TABLET PO SCH (09:46)
[2023-03-08] MEDS: ASPIRIN 81 MG CHEWABLE TABLETS PO SCH (09:46)
[2023-03-08] MEDS: CARVEDILOL 3.125 MG TABLET (FP) PO SCH ×2 (09:47→21:54)
[2023-03-08] MEDS: LISINOPRIL 5 MG TABLET PO SCH (09:47)
[2023-03-08] MEDS: NICOTINE 21 MG/24 HOURS TOPICAL PATCH TD SCH (09:47)
[2023-03-08] MEDS: PRENATAL VITAMINS W/ FOLIC ACID TABLET (FP) PO SCH (09:47)
[2023-03-08] MEDS: IBUPROFEN 600 MG TABLET (FP) PO PRN (15:39)
[2023-03-08] MEDS: MELATONIN 5 MG TABLETS PO SCH (21:53)
[2023-03-08] MEDS: traZODone HCL 50 MG TABLET (FP) PO SCH (21:54)
[2023-03-08] MEDS: THIAMINE HCL 100 MG TABLET (FP) PO SCH (21:54)
[2023-03-08] MEDS: SENNOSIDES 8.6MG TABLET (FP) PO PRN (21:56)
[2023-03-09] MEDS: metFORMIN HCL 500 MG TABLET (FP) PO SCH ×2 (06:58→17:09)
[2023-03-09] MEDS: IBUPROFEN 600 MG TABLET (FP) PO PRN (06:58)
[2023-03-09] MEDS: ATORVASTATIN CA 40 MG TABLET (FP) PO SCH (06:58)
[2023-03-09] MEDS: hydrOXYzine PAMOATE 25 MG CAPSULE (FP) PO PRN (06:59)
[2023-03-09] MEDS: NICOTINE POLACRILEX 2 MG GUM BUC PRN ×4 (07:00→19:14)
[2023-03-09] MEDS: INSULIN SLIDING SCALE (NOVOLOG) 1 VIAL SQ SCH ×2 (07:53→16:33)
[2023-03-09] MEDS: LISINOPRIL 5 MG TABLET PO SCH (09:24)
[2023-03-09] MEDS: SULFAMETHOXAZOLE/TRIMETHOPRIM 800MG/160MG D.S. TABLET PO SCH ×2 (09:25→21:37)
[2023-03-09] MEDS: ASPIRIN 81 MG CHEWABLE TABLETS PO SCH (09:25)
[2023-03-09] MEDS: CARVEDILOL 3.125 MG TABLET (FP) PO SCH ×2 (09:25→21:37)
[2023-03-09] MEDS: valACYclovir HCL 500 MG TABLET (FP) PO SCH (09:25)
[2023-03-09] MEDS: CHOLECALCIFEROL (VIT D3) 1,000 UNIT (25 MCG) TABLET PO SCH (09:25)
[2023-03-09] MEDS: PRENATAL VITAMINS W/ FOLIC ACID TABLET (FP) PO SCH (09:26)
[2023-03-09] MEDS: NICOTINE 21 MG/24 HOURS TOPICAL PATCH TD SCH (09:26)
[2023-03-09] MEDS: MAGNESIUM HYDROX 2400MG/30ML ORAL SUSPENSION 30 ML CUP PO PRN (11:11)
[2023-03-09] MEDS: THIAMINE HCL 100 MG TABLET (FP) PO SCH (21:37)
[2023-03-09] MEDS: traZODone HCL 50 MG TABLET (FP) PO SCH (21:37)
[2023-03-09] MEDS: MELATONIN 5 MG TABLETS PO SCH (21:38)
[2023-03-10] MEDS: NICOTINE POLACRILEX 2 MG GUM BUC PRN ×5 (03:38→16:53)
[2023-03-10] MEDS: metFORMIN HCL 500 MG TABLET (FP) PO SCH ×2 (06:48→16:53)
[2023-03-10] MEDS: ATORVASTATIN CA 40 MG TABLET (FP) PO SCH (06:48)
[2023-03-10] MEDS: hydrOXYzine PAMOATE 25 MG CAPSULE (FP) PO PRN (06:49)
[2023-03-10] MEDS: INSULIN SLIDING SCALE (NOVOLOG) 1 VIAL SQ SCH ×2 (06:55→17:01)
[2023-03-10] MEDS: SULFAMETHOXAZOLE/TRIMETHOPRIM 800MG/160MG D.S. TABLET PO SCH ×2 (09:47→21:58)
[2023-03-10] MEDS: valACYclovir HCL 500 MG TABLET (FP) PO SCH (09:47)
[2023-03-10] MEDS: CHOLECALCIFEROL (VIT D3) 1,000 UNIT (25 MCG) TABLET PO SCH (09:47)
[2023-03-10] MEDS: ASPIRIN 81 MG CHEWABLE TABLETS PO SCH (09:47)
[2023-03-10] MEDS: PRENATAL VITAMINS W/ FOLIC ACID TABLET (FP) PO SCH (09:47)
[2023-03-10] MEDS: NICOTINE 21 MG/24 HOURS TOPICAL PATCH TD SCH (09:48)
[2023-03-10] MEDS: ACETAMINOPHEN 325 MG TABLET (FP) PO PRN (09:51)
[2023-03-10] MEDS: CARVEDILOL 3.125 MG TABLET (FP) PO SCH ×2 (10:55→21:58)
[2023-03-10] MEDS: LISINOPRIL 5 MG TABLET PO SCH (10:55)
[2023-03-10] MEDS: MAGNESIUM HYDROX 2400MG/30ML ORAL SUSPENSION 30 ML CUP PO PRN (11:26)
[2023-03-10] MEDS: THIAMINE HCL 100 MG TABLET (FP) PO SCH (21:58)
[2023-03-10] MEDS: traZODone HCL 50 MG TABLET (FP) PO SCH (21:58)
[2023-03-10] MEDS: MELATONIN 5 MG TABLETS PO SCH (21:58)
[2023-03-11] MEDS: metFORMIN HCL 500 MG TABLET (FP) PO SCH ×2 (06:57→17:31)
[2023-03-11] MEDS: NICOTINE POLACRILEX 2 MG GUM BUC PRN ×5 (06:58→21:36)
[2023-03-11] MEDS: ATORVASTATIN CA 40 MG TABLET (FP) PO SCH (06:58)
[2023-03-11] MEDS: hydrOXYzine PAMOATE 25 MG CAPSULE (FP) PO PRN (07:00)
[2023-03-11] MEDS: INSULIN SLIDING SCALE (NOVOLOG) 1 VIAL SQ SCH ×2 (07:02→17:31)
[2023-03-11] MEDS: PRENATAL VITAMINS W/ FOLIC ACID TABLET (FP) PO SCH (09:53)
[2023-03-11] MEDS: LISINOPRIL 5 MG TABLET PO SCH (09:53)
[2023-03-11] MEDS: ASPIRIN 81 MG CHEWABLE TABLETS PO SCH (09:53)
[2023-03-11] MEDS: NICOTINE 21 MG/24 HOURS TOPICAL PATCH TD SCH (09:54)
[2023-03-11] MEDS: CARVEDILOL 3.125 MG TABLET (FP) PO SCH ×2 (09:54→21:38)
[2023-03-11] MEDS: SULFAMETHOXAZOLE/TRIMETHOPRIM 800MG/160MG D.S. TABLET PO SCH ×2 (09:54→21:31)
[2023-03-11] MEDS: valACYclovir HCL 500 MG TABLET (FP) PO SCH (09:54)
[2023-03-11] MEDS: CHOLECALCIFEROL (VIT D3) 1,000 UNIT (25 MCG) TABLET PO SCH (09:55)
[2023-03-11] MEDS: SIMETHICONE 80 MG TAB.CHEW (FP) PO PRN ×2 (14:35→21:30)
[2023-03-11] MEDS: ACETAMINOPHEN 325 MG TABLET (FP) PO PRN (17:12)
[2023-03-11] MEDS: MELATONIN 5 MG TABLETS PO SCH (21:30)
[2023-03-11] MEDS: SENNOSIDES 8.6MG TABLET (FP) PO PRN (21:30)
[2023-03-11] MEDS: traZODone HCL 50 MG TABLET (FP) PO SCH (21:30)
[2023-03-11] MEDS: THIAMINE HCL 100 MG TABLET (FP) PO SCH (21:31)
[2023-03-11] MEDS: IBUPROFEN 600 MG TABLET (FP) PO PRN (21:33)
[2023-03-12] MEDS: ATORVASTATIN CA 40 MG TABLET (FP) PO SCH (06:06)
[2023-03-12] MEDS: NICOTINE POLACRILEX 2 MG GUM BUC PRN ×3 (06:07→21:53)
[2023-03-12] MEDS: metFORMIN HCL 500 MG TABLET (FP) PO SCH ×2 (06:07→17:11)
[2023-03-12] MEDS: INSULIN SLIDING SCALE (NOVOLOG) 1 VIAL SQ SCH ×2 (06:07→17:11)
[2023-03-12] MEDS: ASPIRIN 81 MG CHEWABLE TABLETS PO SCH (09:29)
[2023-03-12] MEDS: CARVEDILOL 3.125 MG TABLET (FP) PO SCH ×2 (09:29→21:51)
[2023-03-12] MEDS: CHOLECALCIFEROL (VIT D3) 1,000 UNIT (25 MCG) TABLET PO SCH (09:29)
[2023-03-12] MEDS: valACYclovir HCL 500 MG TABLET (FP) PO SCH (09:29)
[2023-03-12] MEDS: SULFAMETHOXAZOLE/TRIMETHOPRIM 800MG/160MG D.S. TABLET PO SCH ×2 (09:29→21:50)
[2023-03-12] MEDS: LISINOPRIL 5 MG TABLET PO SCH (09:30)
[2023-03-12] MEDS: PRENATAL VITAMINS W/ FOLIC ACID TABLET (FP) PO SCH (09:30)
[2023-03-12] MEDS: NICOTINE 21 MG/24 HOURS TOPICAL PATCH TD SCH (09:32)
[2023-03-12 12:34] LABS: HIV INTERPRETATION NEGATIVE (NEGATIVE)
[2023-03-12] MEDS: ACETAMINOPHEN 325 MG TABLET (FP) PO PRN (13:37)
[2023-03-12] MEDS: hydrOXYzine PAMOATE 25 MG CAPSULE (FP) PO PRN (13:38)
[2023-03-12] MEDS: IBUPROFEN 600 MG TABLET (FP) PO PRN (17:13)
[2023-03-12] MEDS: traZODone HCL 50 MG TABLET (FP) PO SCH (21:50)
[2023-03-12] MEDS: MELATONIN 5 MG TABLETS PO SCH (21:50)
[2023-03-12] MEDS: THIAMINE HCL 100 MG TABLET (FP) PO SCH (21:50)
[2023-03-13] MEDS: metFORMIN HCL 500 MG TABLET (FP) PO SCH ×2 (06:58→16:21)
[2023-03-13] MEDS: ATORVASTATIN CA 40 MG TABLET (FP) PO SCH (06:58)
[2023-03-13] MEDS: INSULIN SLIDING SCALE (NOVOLOG) 1 VIAL SQ SCH ×2 (06:59→16:26)
[2023-03-13] MEDS: CHOLECALCIFEROL (VIT D3) 1,000 UNIT (25 MCG) TABLET PO SCH (09:28)
[2023-03-13] MEDS: valACYclovir HCL 500 MG TABLET (FP) PO SCH (09:29)
[2023-03-13] MEDS: PRENATAL VITAMINS W/ FOLIC ACID TABLET (FP) PO SCH (09:29)
[2023-03-13] MEDS: LISINOPRIL 5 MG TABLET PO SCH (09:29)
[2023-03-13] MEDS: SULFAMETHOXAZOLE/TRIMETHOPRIM 800MG/160MG D.S. TABLET PO SCH ×2 (09:29→21:32)
[2023-03-13] MEDS: ASPIRIN 81 MG CHEWABLE TABLETS PO SCH (09:29)
[2023-03-13] MEDS: NICOTINE 21 MG/24 HOURS TOPICAL PATCH TD SCH (09:33)
[2023-03-13] MEDS: NICOTINE POLACRILEX 2 MG GUM BUC PRN ×3 (09:33→21:34)
[2023-03-13] MEDS: CARVEDILOL 3.125 MG TABLET (FP) PO SCH ×2 (09:33→21:32)
[2023-03-13] MEDS: IBUPROFEN 600 MG TABLET (FP) PO PRN ×2 (12:50→19:26)
[2023-03-13] MEDS: hydrOXYzine PAMOATE 25 MG CAPSULE (FP) PO PRN (12:52)
[2023-03-13] MEDS: COLLOIDAL OATMEAL 1 BAR EACH TP PRN (19:25)
[2023-03-13] MEDS: MELATONIN 5 MG TABLETS PO SCH (21:32)
[2023-03-13] MEDS: THIAMINE HCL 100 MG TABLET (FP) PO SCH (21:32)
[2023-03-13] MEDS: traZODone HCL 50 MG TABLET (FP) PO SCH (21:32)
[2023-03-13] MEDS: SENNOSIDES 8.6MG TABLET (FP) PO PRN (21:34)
[2023-03-14] MEDS: INSULIN SLIDING SCALE (NOVOLOG) 1 VIAL SQ SCH ×2 (06:08→17:13)
[2023-03-14] MEDS: ATORVASTATIN CA 40 MG TABLET (FP) PO SCH (06:08)
[2023-03-14] MEDS: metFORMIN HCL 500 MG TABLET (FP) PO SCH ×2 (06:08→17:12)
[2023-03-14] MEDS: hydrOXYzine PAMOATE 25 MG CAPSULE (FP) PO PRN (06:09)
[2023-03-14] MEDS: NICOTINE POLACRILEX 2 MG GUM BUC PRN ×2 (08:19→12:40)
[2023-03-14] MEDS: valACYclovir HCL 500 MG TABLET (FP) PO SCH (09:25)
[2023-03-14] MEDS: SULFAMETHOXAZOLE/TRIMETHOPRIM 800MG/160MG D.S. TABLET PO SCH ×2 (09:25→21:55)
[2023-03-14] MEDS: PRENATAL VITAMINS W/ FOLIC ACID TABLET (FP) PO SCH (09:25)
[2023-03-14] MEDS: ASPIRIN 81 MG CHEWABLE TABLETS PO SCH (09:25)
[2023-03-14] MEDS: NICOTINE 21 MG/24 HOURS TOPICAL PATCH TD SCH (09:25)
[2023-03-14] MEDS: CHOLECALCIFEROL (VIT D3) 1,000 UNIT (25 MCG) TABLET PO SCH (09:26)
[2023-03-14] MEDS: LISINOPRIL 5 MG TABLET PO SCH (10:25)
[2023-03-14] MEDS: CARVEDILOL 3.125 MG TABLET (FP) PO SCH ×2 (10:25→23:22)
[2023-03-14] MEDS: IBUPROFEN 600 MG TABLET (FP) PO PRN (15:36)
[2023-03-14] MEDS: MELATONIN 5 MG TABLETS PO SCH (21:54)
[2023-03-14] MEDS: traZODone HCL 50 MG TABLET (FP) PO SCH (21:54)
[2023-03-14] MEDS: BENZOYL PEROXIDE 5% 60 GM GEL..GRAM. TP SCH (21:54)
[2023-03-14] MEDS: THIAMINE HCL 100 MG TABLET (FP) PO SCH (21:55)
[2023-03-15] MEDS: hydrOXYzine PAMOATE 25 MG CAPSULE (FP) PO PRN (02:07)
[2023-03-15] MEDS: NICOTINE POLACRILEX 2 MG GUM BUC PRN ×3 (02:07→15:15)
[2023-03-15] MEDS: ATORVASTATIN CA 40 MG TABLET (FP) PO SCH (06:21)
[2023-03-15] MEDS: INSULIN SLIDING SCALE (NOVOLOG) 1 VIAL SQ SCH ×2 (07:17→16:58)
[2023-03-15] MEDS: metFORMIN HCL 500 MG TABLET (FP) PO SCH ×2 (07:52→16:56)
[2023-03-15] MEDS: ASPIRIN 81 MG CHEWABLE TABLETS PO SCH (09:40)
[2023-03-15] MEDS: valACYclovir HCL 500 MG TABLET (FP) PO SCH (09:40)
[2023-03-15] MEDS: SULFAMETHOXAZOLE/TRIMETHOPRIM 800MG/160MG D.S. TABLET PO SCH ×2 (09:41→22:09)
[2023-03-15] MEDS: LISINOPRIL 5 MG TABLET PO SCH (09:41)
[2023-03-15] MEDS: CHOLECALCIFEROL (VIT D3) 1,000 UNIT (25 MCG) TABLET PO SCH (09:41)
[2023-03-15] MEDS: PRENATAL VITAMINS W/ FOLIC ACID TABLET (FP) PO SCH (09:43)
[2023-03-15] MEDS: NICOTINE 21 MG/24 HOURS TOPICAL PATCH TD SCH (09:44)
[2023-03-15] MEDS: CARVEDILOL 3.125 MG TABLET (FP) PO SCH ×2 (11:48→22:53)
[2023-03-15] MEDS: THIAMINE HCL 100 MG TABLET (FP) PO SCH (22:09)
[2023-03-15] MEDS: traZODone HCL 50 MG TABLET (FP) PO SCH (22:09)
[2023-03-15] MEDS: BENZOYL PEROXIDE 5% 60 GM GEL..GRAM. TP SCH (22:10)
[2023-03-15] MEDS: MELATONIN 5 MG TABLETS PO SCH (22:11)
[2023-03-16] MEDS: NICOTINE POLACRILEX 2 MG GUM BUC PRN ×6 (00:20→21:51)
[2023-03-16] MEDS: ATORVASTATIN CA 40 MG TABLET (FP) PO SCH (06:35)
[2023-03-16] MEDS: hydrOXYzine PAMOATE 25 MG CAPSULE (FP) PO PRN (06:36)
[2023-03-16] MEDS: INSULIN SLIDING SCALE (NOVOLOG) 1 VIAL SQ SCH ×2 (06:38→16:35)
[2023-03-16] MEDS: metFORMIN HCL 500 MG TABLET (FP) PO SCH ×2 (06:38→16:59)
[2023-03-16] MEDS: PRENATAL VITAMINS W/ FOLIC ACID TABLET (FP) PO SCH (09:55)
[2023-03-16] MEDS: NICOTINE 21 MG/24 HOURS TOPICAL PATCH TD SCH (09:55)
[2023-03-16] MEDS: valACYclovir HCL 500 MG TABLET (FP) PO SCH (09:56)
[2023-03-16] MEDS: ASPIRIN 81 MG CHEWABLE TABLETS PO SCH (09:57)
[2023-03-16] MEDS: CHOLECALCIFEROL (VIT D3) 1,000 UNIT (25 MCG) TABLET PO SCH (09:57)
[2023-03-16] MEDS: CARVEDILOL 3.125 MG TABLET (FP) PO SCH ×2 (09:58→21:46)
[2023-03-16] MEDS: SULFAMETHOXAZOLE/TRIMETHOPRIM 800MG/160MG D.S. TABLET PO SCH ×2 (09:58→21:46)
[2023-03-16] MEDS: LISINOPRIL 5 MG TABLET PO SCH (10:00)
[2023-03-16] MEDS: IBUPROFEN 600 MG TABLET (FP) PO PRN (11:53)
[2023-03-16] MEDS: THIAMINE HCL 100 MG TABLET (FP) PO SCH (21:46)
[2023-03-16] MEDS: MELATONIN 5 MG TABLETS PO SCH (21:47)
[2023-03-16] MEDS: BENZOYL PEROXIDE 5% 60 GM GEL..GRAM. TP SCH (21:47)
[2023-03-16] MEDS: traZODone HCL 50 MG TABLET (FP) PO SCH (21:47)
[2023-03-16] MEDS: SENNOSIDES 8.6MG TABLET (FP) PO PRN (21:49)
[2023-03-17] MEDS: ATORVASTATIN CA 40 MG TABLET (FP) PO SCH (06:08)
[2023-03-17] MEDS: metFORMIN HCL 500 MG TABLET (FP) PO SCH ×2 (06:08→17:00)
[2023-03-17] MEDS: hydrOXYzine PAMOATE 25 MG CAPSULE (FP) PO PRN (06:10)
[2023-03-17] MEDS: NICOTINE POLACRILEX 2 MG GUM BUC PRN ×3 (06:11→17:49)
[2023-03-17] MEDS: COLLOIDAL OATMEAL 1 BAR EACH TP PRN (06:11)
[2023-03-17] MEDS: INSULIN SLIDING SCALE (NOVOLOG) 1 VIAL SQ SCH ×2 (06:15→17:37)
[2023-03-17] MEDS: IBUPROFEN 600 MG TABLET (FP) PO PRN (08:39)
[2023-03-17] MEDS: valACYclovir HCL 500 MG TABLET (FP) PO SCH (10:12)
[2023-03-17] MEDS: CHOLECALCIFEROL (VIT D3) 1,000 UNIT (25 MCG) TABLET PO SCH (10:12)
[2023-03-17] MEDS: PRENATAL VITAMINS W/ FOLIC ACID TABLET (FP) PO SCH (10:12)
[2023-03-17] MEDS: ASPIRIN 81 MG CHEWABLE TABLETS PO SCH (10:12)
[2023-03-17] MEDS: SULFAMETHOXAZOLE/TRIMETHOPRIM 800MG/160MG D.S. TABLET PO SCH ×2 (10:12→21:09)
[2023-03-17] MEDS: CARVEDILOL 3.125 MG TABLET (FP) PO SCH ×2 (10:13→21:08)
[2023-03-17] MEDS: LISINOPRIL 5 MG TABLET PO SCH (10:14)
[2023-03-17] MEDS: ARTIFICIAL TEARS (POLYVINYL ALCOHOL) OPTH DROPS OU PRN ×2 (10:15→21:13)
[2023-03-17] MEDS: NICOTINE 21 MG/24 HOURS TOPICAL PATCH TD SCH (10:16)
[2023-03-17] MEDS: NALTREXONE HCL 50 MG TABLET PO SCH (16:24)
[2023-03-17] MEDS: traZODone HCL 50 MG TABLET (FP) PO SCH (21:08)
[2023-03-17] MEDS: THIAMINE HCL 100 MG TABLET (FP) PO SCH (21:09)
[2023-03-17] MEDS: MELATONIN 5 MG TABLETS PO SCH (21:09)
[2023-03-17] MEDS: BENZOYL PEROXIDE 5% 60 GM GEL..GRAM. TP SCH (21:14)
[2023-03-18] MEDS: NICOTINE POLACRILEX 2 MG GUM BUC PRN ×4 (05:09→18:54)
[2023-03-18] MEDS: ATORVASTATIN CA 40 MG TABLET (FP) PO SCH (06:57)
[2023-03-18] MEDS: metFORMIN HCL 500 MG TABLET (FP) PO SCH ×2 (06:57→17:01)
[2023-03-18] MEDS: hydrOXYzine PAMOATE 25 MG CAPSULE (FP) PO PRN (06:59)
[2023-03-18] MEDS: INSULIN SLIDING SCALE (NOVOLOG) 1 VIAL SQ SCH ×2 (07:13→17:02)
[2023-03-18] MEDS: PRENATAL VITAMINS W/ FOLIC ACID TABLET (FP) PO SCH (09:42)
[2023-03-18] MEDS: SULFAMETHOXAZOLE/TRIMETHOPRIM 800MG/160MG D.S. TABLET PO SCH ×2 (09:43→21:50)
[2023-03-18] MEDS: LISINOPRIL 5 MG TABLET PO SCH (09:43)
[2023-03-18] MEDS: CHOLECALCIFEROL (VIT D3) 1,000 UNIT (25 MCG) TABLET PO SCH (09:43)
[2023-03-18] MEDS: valACYclovir HCL 500 MG TABLET (FP) PO SCH (09:44)
[2023-03-18] MEDS: CARVEDILOL 3.125 MG TABLET (FP) PO SCH ×2 (09:46→21:50)
[2023-03-18] MEDS: ASPIRIN 81 MG CHEWABLE TABLETS PO SCH (09:46)
[2023-03-18] MEDS: NICOTINE 21 MG/24 HOURS TOPICAL PATCH TD SCH (09:46)
[2023-03-18] MEDS: NALTREXONE HCL 50 MG TABLET PO SCH (09:47)
[2023-03-18] MEDS: ARTIFICIAL TEARS (POLYVINYL ALCOHOL) OPTH DROPS OU PRN ×2 (09:49→21:50)
[2023-03-18] MEDS: IBUPROFEN 600 MG TABLET (FP) PO PRN (14:32)
[2023-03-18] MEDS: SIMETHICONE 80 MG TAB.CHEW (FP) PO PRN (15:21)
[2023-03-18] MEDS: BENZOYL PEROXIDE 5% 60 GM GEL..GRAM. TP SCH (21:49)
[2023-03-18] MEDS: traZODone HCL 50 MG TABLET (FP) PO SCH (21:50)
[2023-03-18] MEDS: MELATONIN 5 MG TABLETS PO SCH (21:51)
[2023-03-18] MEDS: THIAMINE HCL 100 MG TABLET (FP) PO SCH (21:51)
[2023-03-19] MEDS: ATORVASTATIN CA 40 MG TABLET (FP) PO SCH (06:51)
[2023-03-19] MEDS: metFORMIN HCL 500 MG TABLET (FP) PO SCH ×2 (06:51→16:51)
[2023-03-19] MEDS: hydrOXYzine PAMOATE 25 MG CAPSULE (FP) PO PRN (06:51)
[2023-03-19] MEDS: NICOTINE POLACRILEX 2 MG GUM BUC PRN ×5 (06:53→20:40)
[2023-03-19] MEDS: INSULIN SLIDING SCALE (NOVOLOG) 1 VIAL SQ SCH ×2 (07:46→16:52)
[2023-03-19] MEDS: PRENATAL VITAMINS W/ FOLIC ACID TABLET (FP) PO SCH (10:09)
[2023-03-19] MEDS: NALTREXONE HCL 50 MG TABLET PO SCH (10:10)
[2023-03-19] MEDS: LISINOPRIL 5 MG TABLET PO SCH (10:10)
[2023-03-19] MEDS: SULFAMETHOXAZOLE/TRIMETHOPRIM 800MG/160MG D.S. TABLET PO SCH ×2 (10:10→21:59)
[2023-03-19] MEDS: valACYclovir HCL 500 MG TABLET (FP) PO SCH (10:10)
[2023-03-19] MEDS: CHOLECALCIFEROL (VIT D3) 1,000 UNIT (25 MCG) TABLET PO SCH (10:10)
[2023-03-19] MEDS: NICOTINE 21 MG/24 HOURS TOPICAL PATCH TD SCH (10:11)
[2023-03-19] MEDS: ASPIRIN 81 MG CHEWABLE TABLETS PO SCH (10:11)
[2023-03-19] MEDS: CARVEDILOL 3.125 MG TABLET (FP) PO SCH ×2 (10:11→22:00)
[2023-03-19] MEDS: ARTIFICIAL TEARS (POLYVINYL ALCOHOL) OPTH DROPS OU PRN (10:15)
[2023-03-19] MEDS: IBUPROFEN 600 MG TABLET (FP) PO PRN (12:19)
[2023-03-19] MEDS: traZODone HCL 50 MG TABLET (FP) PO SCH (21:59)
[2023-03-19] MEDS: THIAMINE HCL 100 MG TABLET (FP) PO SCH (21:59)
[2023-03-19] MEDS: BENZOYL PEROXIDE 5% 60 GM GEL..GRAM. TP SCH (21:59)
[2023-03-19] MEDS: MELATONIN 5 MG TABLETS PO SCH (22:00)
[2023-03-19] MEDS: SENNOSIDES 8.6MG TABLET (FP) PO PRN (22:03)
[2023-03-20] MEDS: NICOTINE POLACRILEX 2 MG GUM BUC PRN ×4 (02:15→13:12)
[2023-03-20] MEDS: ATORVASTATIN CA 40 MG TABLET (FP) PO SCH (06:05)
[2023-03-20] MEDS: IBUPROFEN 600 MG TABLET (FP) PO PRN ×2 (06:05→21:03)
[2023-03-20] MEDS: hydrOXYzine PAMOATE 25 MG CAPSULE (FP) PO PRN ×2 (06:05→13:49)
[2023-03-20] MEDS: INSULIN SLIDING SCALE (NOVOLOG) 1 VIAL SQ SCH ×2 (07:05→17:02)
[2023-03-20] MEDS: metFORMIN HCL 500 MG TABLET (FP) PO SCH ×2 (07:31→17:02)
[2023-03-20] MEDS: PRENATAL VITAMINS W/ FOLIC ACID TABLET (FP) PO SCH (09:37)
[2023-03-20] MEDS: valACYclovir HCL 500 MG TABLET (FP) PO SCH (09:37)
[2023-03-20] MEDS: ASPIRIN 81 MG CHEWABLE TABLETS PO SCH (09:37)
[2023-03-20] MEDS: SULFAMETHOXAZOLE/TRIMETHOPRIM 800MG/160MG D.S. TABLET PO SCH ×2 (09:37→21:01)
[2023-03-20] MEDS: CHOLECALCIFEROL (VIT D3) 1,000 UNIT (25 MCG) TABLET PO SCH (09:37)
[2023-03-20] MEDS: NALTREXONE HCL 50 MG TABLET PO SCH (09:37)
[2023-03-20] MEDS: NICOTINE 21 MG/24 HOURS TOPICAL PATCH TD SCH (09:37)
[2023-03-20] MEDS: LISINOPRIL 5 MG TABLET PO SCH (09:38)
[2023-03-20] MEDS: CARVEDILOL 3.125 MG TABLET (FP) PO SCH ×2 (09:38→22:00)
[2023-03-20] MEDS: ACETAMINOPHEN 325 MG TABLET (FP) PO PRN (09:40)
[2023-03-20] MEDS ORDERED: ONDANSETRON 8 MG TABLET (FP) PO PRN (12:44)
[2023-03-20] MEDS ORDERED: ONDANSETRON 4 MG TABLET PO PRN (13:15)
[2023-03-20] MEDS: THIAMINE HCL 100 MG TABLET (FP) PO SCH (21:00)
[2023-03-20] MEDS: traZODone HCL 50 MG TABLET (FP) PO SCH (21:00)
[2023-03-20] MEDS: MELATONIN 5 MG TABLETS PO SCH (21:01)
[2023-03-20] MEDS: SENNOSIDES 8.6MG TABLET (FP) PO PRN (21:03)
[2023-03-20] MEDS: BENZOYL PEROXIDE 5% 60 GM GEL..GRAM. TP SCH (21:08)
[2023-03-21] MEDS: hydrOXYzine PAMOATE 25 MG CAPSULE (FP) PO PRN (06:22)
[2023-03-21] MEDS: ATORVASTATIN CA 40 MG TABLET (FP) PO SCH (06:22)
[2023-03-21] MEDS: NICOTINE POLACRILEX 2 MG GUM BUC PRN ×5 (06:23→21:48)
[2023-03-21] MEDS: INSULIN SLIDING SCALE (NOVOLOG) 1 VIAL SQ SCH ×2 (07:40→17:31)
[2023-03-21] MEDS: metFORMIN HCL 500 MG TABLET (FP) PO SCH ×2 (07:44→17:28)
[2023-03-21] MEDS: CHOLECALCIFEROL (VIT D3) 1,000 UNIT (25 MCG) TABLET PO SCH (09:49)
[2023-03-21] MEDS: LISINOPRIL 5 MG TABLET PO SCH (09:49)
[2023-03-21] MEDS: ASPIRIN 81 MG CHEWABLE TABLETS PO SCH (09:49)
[2023-03-21] MEDS: PRENATAL VITAMINS W/ FOLIC ACID TABLET (FP) PO SCH (09:49)
[2023-03-21] MEDS: SULFAMETHOXAZOLE/TRIMETHOPRIM 800MG/160MG D.S. TABLET PO SCH ×2 (09:49→21:44)
[2023-03-21] MEDS: valACYclovir HCL 500 MG TABLET (FP) PO SCH (09:49)
[2023-03-21] MEDS: NICOTINE 21 MG/24 HOURS TOPICAL PATCH TD SCH (09:50)
[2023-03-21] MEDS: NALTREXONE HCL 50 MG TABLET PO SCH (09:50)
[2023-03-21] MEDS: CARVEDILOL 3.125 MG TABLET (FP) PO SCH ×2 (09:50→21:47)
[2023-03-21] MEDS: IBUPROFEN 600 MG TABLET (FP) PO PRN (10:54)
[2023-03-21] MEDS ORDERED: ONDANSETRON *ODT* 4 MG TABLET SL PRN (11:05)
[2023-03-21] MEDS: MAGNESIUM HYDROX 2400MG/30ML ORAL SUSPENSION 30 ML CUP PO PRN (15:35)
[2023-03-21] MEDS: ACETAMINOPHEN 325 MG TABLET (FP) PO PRN (15:35)
[2023-03-21] MEDS: COLLOIDAL OATMEAL 1 BAR EACH TP PRN (16:42)
[2023-03-21] MEDS: THIAMINE HCL 100 MG TABLET (FP) PO SCH (21:44)
[2023-03-21] MEDS: traZODone HCL 50 MG TABLET (FP) PO SCH (21:44)
[2023-03-21] MEDS: MELATONIN 5 MG TABLETS PO SCH (21:45)
[2023-03-21] MEDS: BENZOYL PEROXIDE 5% 60 GM GEL..GRAM. TP SCH (21:45)
[2023-03-21 22:34] VITALS: PULSE 76
[2023-03-22] MEDS: hydrOXYzine PAMOATE 25 MG CAPSULE (FP) PO PRN (03:22)
[2023-03-22] MEDS: NICOTINE POLACRILEX 2 MG GUM BUC PRN ×2 (03:24→09:08)
[2023-03-22] MEDS ORDERED: NALTREXONE MICROSPHERES (VIVITROL) 380 MG DISP.SYRIN IM ONE (06:00)
[2023-03-22] MEDS: ATORVASTATIN CA 40 MG TABLET (FP) PO SCH (06:22)
[2023-03-22] MEDS: INSULIN SLIDING SCALE (NOVOLOG) 1 VIAL SQ SCH (06:23)
[2023-03-22] MEDS: metFORMIN HCL 500 MG TABLET (FP) PO SCH (06:23)
[2023-03-22 07:24] VITALS: BP 115/70; RESP 16; TEMP 97.8
[2023-03-22] MEDS: ASPIRIN 81 MG CHEWABLE TABLETS PO SCH (09:04)
[2023-03-22] MEDS: valACYclovir HCL 500 MG TABLET (FP) PO SCH (09:04)
[2023-03-22] MEDS: SULFAMETHOXAZOLE/TRIMETHOPRIM 800MG/160MG D.S. TABLET PO SCH (09:04)
[2023-03-22] MEDS: PRENATAL VITAMINS W/ FOLIC ACID TABLET (FP) PO SCH (09:04)
[2023-03-22] MEDS: CHOLECALCIFEROL (VIT D3) 1,000 UNIT (25 MCG) TABLET PO SCH (09:04)
[2023-03-22] MEDS: LISINOPRIL 5 MG TABLET PO SCH (09:05)
[2023-03-22] MEDS: NICOTINE 21 MG/24 HOURS TOPICAL PATCH TD SCH (09:05)
[2023-03-22] MEDS: CARVEDILOL 3.125 MG TABLET (FP) PO SCH (09:08)
== END 2023-03-22 09:12 | disposition home or self-care (01) | DRG 772 ==
LOC: YASAS 18:13 → Y5N 21:42
PROVIDERS: ADMIT Allergy & Immunology; ATTEND Psychiatry & Neurology Pain Medicine
PROC: HZ42ZZZ Group Counseling for Substance Abuse Treatment, Cognitive-Behavioral (ICD-10-PCS; principal; 2023-02-23)
DX: F10.20 Alcohol dependence, uncomplicated (principal); F14.20 Cocaine dependence, uncomplicated; F17.210 Nicotine dependence, cigarettes, uncomplicated; F19.282 Other psychoactive substance dependence with psychoactive substance-induced sleep disorder; F32.A Depression, unspecified; E78.5 Hyperlipidemia, unspecified; I10 Essential (primary) hypertension; E11.59 Type 2 diabetes mellitus with other circulatory complications; Z79.84 Long term (current) use of oral hypoglycemic drugs; H54.3 Unqualified visual loss, both eyes; K59.00 Constipation, unspecified; R07.9 Chest pain, unspecified; Z86.19 Personal history of other infectious and parasitic diseases
CPT/HCPCS: 36415; 80053; 80307; 81003; 81025; 82962; 83036; 85027; 86780; 86803; 87389; 87635; 93005; 93010; J2315; Q0162